=== PATIENT | male | born 1980 | race Caucasian/White ===

== ENCOUNTER 2021-05-15 00:57 | Emergency (ER) | payer OTHER, BC ==
[~2021-05-15] VITALS: Ht 182.9 cm; Wt 104.3 kg
[2021-05-15] MEDS ORDERED: GRALISE600 MG PO (01:11)
[2021-05-15] MEDS ORDERED: ADDERALL XR 2020 MG PO (01:11)
[2021-05-15] MEDS ORDERED: PERCOCET 7.5-31 EACH PO (04:07)
[2021-05-15] MEDS ORDERED: TORADOL 10 MG T10 MG PO (04:07)
[2021-05-15] MEDS ORDERED: MEDROLDOSEPACK PO (04:07)
[2021-05-15 04:26] VITALS: BP 164/47
== END 2021-05-15 04:27 | disposition home or self-care (01) ==
LOC: M.ERS 00:57
DX: S32.050A Wedge compression fracture of fifth lumbar vertebra, initial encounter for closed fracture (principal); M51.36 Other intervertebral disc degeneration, lumbar region; M48.061 Spinal stenosis, lumbar region without neurogenic claudication; I10 Essential (primary) hypertension; G43.909 Migraine, unspecified, not intractable, without status migrainosus; W19.XXXA Unspecified fall, initial encounter; Y93.89 Activity, other specified; Y92.89 Other specified places as the place of occurrence of the external cause; Y99.0 Civilian activity done for income or pay